=== PATIENT | male | born 1965 | race Caucasian/White ===

== ENCOUNTER 2021-05-02 12:31 | Day surgery (SDC) | payer BC ==
[~2021-05-02] VITALS: Ht 182.9 cm; Wt 154.9 kg
[2021-05-02] MEDS ORDERED: LISI-170 PO (13:43)
[2021-05-02] MEDS ORDERED: ROSU5TAB PO (13:43)
[2021-05-02] MEDS ORDERED: OMEGA 3 PO (13:43)
[2021-05-02] MEDS ORDERED: VIT D PO (13:43)
[2021-05-02] MEDS ORDERED: ALBUTEROL INH (13:43)
[2021-05-02] MEDS ORDERED: CETERIZINE PO (13:43)
[2021-05-02] MEDS ORDERED: CLOTRIMAZOLE 1% TP (13:43)
[2021-05-02] MEDS ORDERED: MULTI VIT PO (13:43)
[2021-05-02] MEDS ORDERED: ALBU1.25 NEB (13:43)
[2021-05-02] MEDS ORDERED: GARLIC PO (13:43)
[2021-05-02] MEDS ORDERED: BUDE10.27 INH (13:43)
[2021-05-02] MEDS ORDERED: VIT E PO (13:43)
[2021-05-02] MEDS ORDERED: LACTATED RINGERS 1,000 ML IV SCH (14:00)
[2021-05-02] MEDS ORDERED: PLEASE ENTER HEIGHT AND WEIGHT MC SCH (14:00)
[2021-05-02] MEDS ORDERED: CHLORHEXIDINE 15 ML UDC PO ONE (14:00)
[2021-05-02 14:03] VITALS: BP 136/86
[2021-05-02] MEDS ORDERED: PROPOFOL 50 ML ONE (14:03)
[2021-05-02] MEDS ORDERED: MIDAZOLAM 1 MG/ML, 2ML ONE (14:03)
[2021-05-02 14:27] LABS: ALANINE AMINOTRANSFERASE 54 U/L (12-78); ALBUMIN 4.1 g/dL (3.4-5.0); ANION GAP 5 mmol/L (5-15); CALCIUM 8.5 mg/dL (8.5-10.1); CHLORIDE 108 mmol/L (98-107)
[2021-05-02 14:29] LABS: ALKALINE PHOSPHATASE 51 U/L (45-117); BILIRUBIN,TOTAL 1.1 mg/dL (0.2-1.0); TOTAL PROTEIN 7.7 g/dL (6.4-8.2)
== END 2021-05-02 16:45 | disposition home or self-care (01) ==
LOC: OR 12:31
PROVIDERS: ATTEND Internal Medicine Gastroenterology
DX: Z12.11 Encounter for screening for malignant neoplasm of colon (principal); D12.0 Benign neoplasm of cecum; D12.3 Benign neoplasm of transverse colon; D12.8 Benign neoplasm of rectum; K57.30 Diverticulosis of large intestine without perforation or abscess without bleeding; E66.01 Morbid (severe) obesity due to excess calories; Z68.42 Body mass index [BMI] 45.0-49.9, adult; Z20.822 Contact with and (suspected) exposure to COVID-19; Z79.899 Other long term (current) drug therapy; Z88.0 Allergy status to penicillin
CPT/HCPCS: 36415; 45385; 80053; 87635; 88305; J2250; J2704; J7120